=== PATIENT | male | born 1935 | race Caucasian/White ===

== ENCOUNTER 2020-05-23 14:14 | Observation (INO) | payer MEDICARE, OTHER ==
[~2020-05-23] VITALS: Ht 172.7 cm; Wt 94.0 kg
[2020-05-23 14:29] LABS: BASOPHILS % (AUTO) 0 % (0-10); EOSINOPHILS % (AUTO) 0 % (0-10); HEMATOCRIT 49 % (40-54); LYMPHOCYTES # (AUTO) 1.8 10^3/uL (1.0-4.0); LYMPHOCYTES % (AUTO) 16 % (12-44); MEAN CORPUSCULAR HEMOGLOBIN 31 pg (25-34); MEAN CORPUSCULAR HGB CONC 35 g/dL (32-36); MEAN CORPUSCULAR VOLUME 88 fL (80-99); MEAN PLATELET VOLUME 10.2 fL (9.0-12.2); MONOCYTES # (AUTO) 0.7 10^3/uL (0.0-1.0); MONOCYTES % (AUTO) 6 % (0-12); NEUTROPHILS # (AUTO) 9.2 10^3/uL (1.8-7.8); NEUTROPHILS % (AUTO) 78 % (42-75); PLATELET COUNT 198 10^3/uL (130-400); WHITE BLOOD COUNT 11.8 10^3/uL (4.3-11.0)
--- NOTE | 2020-05-23 14:30 | ED Neurological Problem ---
General Chief Complaint: Neuro-Stroke Like Symptoms Stated Complaint: CONFUSION Source: patient, EMS Exam Limitations: no limitations History of Present Illness Date Seen by Provider: May 23, 2020 Time Seen by Provider: 14:29 Initial Comments To ER with confusion. EMS noted hypertension and repeating phrases. Upon arrival to ER he states "I feel like I gotta pee". He repeats the phrase over and over. His Rosie ([phone]) states that she felt weak and ill on Friday 2 days ago. That evening, he began to feel ill as well. They both slept all day yesterday and had some muscle aches in her low back. She noticed that today at noon he urinated on himself which is unusual for him. She states that 4 days ago he forgot his phone number and address which is very unusual for him. No fevers. She states he is DO NOT RESUSCITATE status and has an advanced directive stating this. He is on warfarin for atrial fibrillation, lives part-time in [place] and part-time in [facility] where he follows with Dr. Newton from [phone]. Timing/Duration: waxing and waning Severity: moderate Associated Symptoms: confusion Allergies and Home Medications Allergies Coded Allergies: No Allergy Information Available (Unverified , 05/23/20) Patient Home Medication List Home Medication List Reviewed: Yes Review of Systems Review of Systems Constitutional: see HPI, other (unable to obtain) Physical Exam Vital Signs Vital Signs - First Documented 05/23/20 14:15 Temp 35.9 Pulse 68 Resp 22 B/P (MAP) 208/114 (145) Pulse Ox 95 O2 Delivery Room Air Capillary Refill : Height, Weight, BMI Height: '" Weight: lbs. oz. kg; BMI Method: General Appearance: WD/WN, no apparent distress, other (repeating the phrase "I feel like I've gotta pee". Bedside ultrasound showed a distended bladder so a Salvador catheter was inserted) HEENT: PERRL/EOMI, normal ENT inspection Respiratory: normal breath sounds, no respiratory distress, no accessory muscle use Cardiovascular: no murmur, irregularly irregular Gastrointestinal: normal bowel sounds, non tender, soft Neurologic/Psychiatric: alert, other (he knows he is at [facility] but he does not know the year or the month.) Crainal Nerves: normal hearing, PERRL Skin: normal color, warm/dry Stroke Onset of Symptoms Date of Onset of Symptoms: May 23, 2020 Time of Symptom Onset: 14:00 Onset of Symptoms: Yes NIH Stroke Scale Assessment Select: Initial Level of Consciousness: 0=Alert (0), Level of Consciousness- Questions: 1=Answers one question (1), LOC Commands: 1=Performs one task (1), Gaze: Normal (0), Visual Saenz: 0=No visual loss (0), Facial Movement (Facial Paresis): 0=Normal symmetrical mnt (0), Motor Function-Arms Right: 0=No drift (0), Motor Function-Arms Left: 0=No drift (0), Motor Function-Legs Right: 0=No drift (0), Motor Function-Legs Left: 0=No drift (0), Limb Ataxia: 0=Absent (0), Sensory: 0=Normal:no loss (0), Best Language: 1=Mild to moderat aphasia (1), Dysarthria: 1=Mild to moderate loss (1), Extinction & Inattention: 0=No abnormality (0), Total: 4 Stroke Thrombolytic Exclusion Oral Anticoagulants: Yes Progress/Results/Core Measures Results/Orders Lab Results Laboratory Tests Test 05/23/20 14:20 05/23/20 14:23 05/23/20 14:25 05/23/20 15:05 Range/Units White Blood Count 11.8 H 4.3-11.0 10^3/uL Red Blood Count 5.56 H 4.30-5.52 10^6/uL Hemoglobin 17.0 13.3-17.7 g/dL Hematocrit 49 40-54 % Mean Corpuscular Volume 88 80-99 fL Mean Corpuscular Hemoglobin 31 25-34 pg Mean Corpuscular Hemoglobin Concent 35 32-36 g/dL Red Cell Distribution Width 13.1 10.0-14.5 % Platelet Count 198 130-400 10^3/uL Mean Platelet Volume 10.2 9.0-12.2 fL Immature Granulocyte % (Auto) 1 % Neutrophils (%) (Auto) 78 H 42-75 % Lymphocytes (%) (Auto) 16 12-44 % Monocytes (%) (Auto) 6 0-12 % Eosinophils (%) (Auto) 0 0-10 % Basophils (%) (Auto) 0 0-10 % Neutrophils # (Auto) 9.2 H 1.8-7.8 10^3/uL Lymphocytes # (Auto) 1.8 1.0-4.0 10^3/uL Monocytes # (Auto) 0.7 0.0-1.0 10^3/uL Eosinophils # (Auto) 0.0 0.0-0.3 10^3/uL Basophils # (Auto) 0.0 0.0-0.1 10^3/uL Immature Granulocyte # (Auto) 0.1 0.0-0.1 10^3/uL Prothrombin Time 20.0 H 12.2-14.7 SEC INR Comment 1.7 H 0.8-1.4 Activated Partial Thromboplast Time 27 24-35 SEC D-Dimer < 0.27 0.00-0.49 UG/ML Sodium Level 141 135-145 MMOL/L Potassium Level 3.9 3.6-5.0 MMOL/L Chloride Level 107 98-107 MMOL/L Carbon Dioxide Level 22 21-32 MMOL/L Anion Gap 12 5-14 MMOL/L Blood Urea Nitrogen 11 7-18 MG/DL Creatinine 0.75 0.60-1.30 MG/DL Estimat Glomerular Filtration Rate > 60 BUN/Creatinine Ratio 15 Glucose Level 141 H 70-105 MG/DL Calcium Level 8.0 L 8.5-10.1 MG/DL Corrected Calcium 8.0 L 8.5-10.1 MG/DL Total Bilirubin 1.1 H 0.1-1.0 MG/DL Aspartate Amino Transf (AST/SGOT) 23 5-34 U/L Alanine Aminotransferase (ALT/SGPT) 22 0-55 U/L Alkaline Phosphatase 65 40-136 U/L Troponin I < 0.028 <0.028 NG/ML Total Protein 6.5 6.4-8.2 GM/DL Albumin 4.0 3.2-4.5 GM/DL Glucometer 154 H 70-110 MG/DL Urine Color YELLOW Urine Clarity CLEAR Urine pH 7.5 5-9 Urine Specific [place] 1.020 1.016-1.022 Urine Protein 1+ H NEGATIVE Urine Glucose (UA) TRACE H NEGATIVE Urine Ketones NEGATIVE NEGATIVE Urine Nitrite NEGATIVE NEGATIVE Urine Bilirubin NEGATIVE NEGATIVE Urine Urobilinogen 0.2 < = 1.0 MG/DL Urine Leukocyte Esterase NEGATIVE NEGATIVE Urine RBC (Auto) TRACE-L NEGATIVE Urine RBC 2-5 H /HPF Urine WBC NONE /HPF Urine Squamous Epithelial Cells NONE /HPF Urine Crystals NONE /LPF Urine Bacteria NEGATIVE /HPF Urine Casts NONE /LPF Urine Mucus NEGATIVE /LPF Urine Culture Indicated NO Coronavirus 2018 (JAYDE) Negative Negative My Orders Orders - DEEPTHI BROWN [employer]PERATOR Ct Angio Head/Neck (05/23/20 14:42) Covid 19 Inhouse Test (05/23/20 14:44) Iohexol Injection (Omnipaque 350 Mg/Ml 1 (05/23/20 15:00) Received Contrast (Hold Metformin- Contr (05/23/20 15:00) Ns (Ivpb) (Sodium Chloride 0.9% Ivpb Bag (05/23/20 15:00) Ondansetron Injection (Zofran Injectio (05/23/20 15:00) Coronavirus Sars-Cov-2 So 2019 (05/23/20 15:45) Medications Given in ED Current Medications Medications Dose Ordered Sig/Randi Route Start Time Stop Time Status Last Admin Dose Admin Iohexol 75 ml ONCE ONCE IV 05/23/20 15:00 05/23/20 15:42 DC 05/23/20 14:57 75 ML Ondansetron HCl 4 mg ONCE ONCE IVP 05/23/20 15:00 05/23/20 15:01 DC 05/23/20 15:06 4 MG Sodium Chloride 100 ml ONCE ONCE IV 05/23/20 15:00 05/23/20 15:42 DC 05/23/20 14:58 80 ML Vital Signs/I&O 05/23/20 14:15 Temp 35.9 Pulse 68 Resp 22 B/P (MAP) 208/114 (145) Pulse Ox 95 O2 Delivery Room Air Diagnostic Imaging Diagonstic Imaging: Xray Plain Films/CT/US/NM/MRI: chest Comments NAME: ARLEY GRAHAM MED REC#: [id number] PT STATUS: REG ER : 1935 PHYSICIAN: BONNY DIAZ MD ADMIT DATE: 05/23/20/ER Draft Date of Exam:05/23/20 CHEST 1 VIEW, AP/PA ONLY INDICATION: Cerebrovascular accident. TIME OF EXAM: 03:11 p.m. COMPARISON: No prior studies are available for comparison. FINDINGS: Heart size is normal. Cardiac defibrillator is in place. The lungs are clear. No infiltrates are seen. There is no effusion or pneumothorax. IMPRESSION: No acute cardiopulmonary process is detected. Dictated on workstation # [id number] Dict: 05/23/20 1512 Trans: 05/23/20 1514 [facility] [id number] Interpreted by: KIESHA MAIER MD Electronically signed by: Departure Communication (Admissions) Time/Spoke to Admitting Phy: 16:[address] La, we'll admit observation, neuro checks. As of yet I don't find cause for his altered mental status. NAME: ARLEY GRAHAM MED REC#: [id number] PT STATUS: REG ER : 1935 PHYSICIAN: BONNY DIAZ MD ADMIT DATE: 05/23/20/ER Draft Date of Exam:05/23/20 CT HEAD WO-R/O STROKE PROCEDURE: CT head wo r/o stroke. TECHNIQUE: Multiple contiguous axial images were obtained through the brain without the use of intravenous contrast. Auto Exposure Controls were utilized during the CT exam to meet ALARA standards for radiation dose reduction. All CT scans use one or more of the following dose optimizing techniques: automated exposure control, MA and/or KvP adjustment based on patient size and exam type or iterative reconstruction. INDICATION: Confusion. No prior studies are available for comparison. Ventricles and sulci are within normal limits. No sulcal effacement or midline shift is identified. No acute intra-axial or extra-axial hemorrhage is detected. Cisterns are patent. Visualized paranasal sinuses are clear. IMPRESSION: No acute intracranial process is detected. Dictated on workstation # [id number] Dict: 05/23/20 1445 Trans: 05/23/20 1451 [facility] [id number] Interpreted by: KIESHA MAIER MD Electronically signed by: Impression Primary Impression: AMS (altered mental status) Qualified Codes: R41.0 - Disorientation, unspecified Disposition: ADMITTED INPATIENT Condition: Stable Admissions Decision to Admit Reason: Admit from ER (General) Decision to Admit/Date: May 23, 2020 Time/Decision to Admit Time: 16:10 DEEPTHI BROWN APRN May 23, 2020 14:30
[2020-05-23 14:38] LABS: CHLORIDE 107 MMOL/L (98-107); POTASSIUM 3.9 MMOL/L (3.6-5.0); SODIUM 141 MMOL/L (135-145)
[2020-05-23 14:40] LABS: GLUCOSE 141 MG/DL (70-105)
[2020-05-23 14:40] LABS: BILIRUBIN,URINE NEGATIVE (NEGATIVE); CLARITY,URINE CLEAR; COLOR,URINE YELLOW; GLUCOSE, URINE (UA) TRACE (NEGATIVE); KETONES,URINE NEGATIVE (NEGATIVE); LEUKOCYTE ESTERASE ,URINE NEGATIVE (NEGATIVE); NITRITE,URINE NEGATIVE (NEGATIVE); PH,URINE 7.5 (5-9); PROTEIN,URINE 1+ (NEGATIVE)
[2020-05-23 14:41] LABS: TOTAL PROTEIN 6.5 GM/DL (6.4-8.2)
[2020-05-23 14:42] LABS: BILIRUBIN,TOTAL 1.1 MG/DL (0.1-1.0); CARBON DIOXIDE 22 MMOL/L (21-32)
[2020-05-23 14:44] LABS: ALKALINE PHOSPHATASE 65 U/L (40-136); CREATININE SERUM 0.75 MG/DL (0.60-1.30); GFR ESTIMATED > 60
[2020-05-23 14:45] LABS: BUN/CREATININE RATIO 15
[2020-05-23 14:47] LABS: ALANINE AMINOTRANSFERASE 22 U/L (0-55); FIBRIN DEGRADATION PRODUCTS < 0.27 UG/ML (0.00-0.49); INR 1.7 (0.8-1.4); PARTIAL THROMBOPLASTIN TIME 27 SEC (24-35)
[2020-05-23 14:51] LABS: BACTERIA,URINE NEGATIVE /HPF
--- NOTE | 2020-05-23 14:51 | Diagnostic Imaging Report ---
PROCEDURE: CT head wo r/o stroke. TECHNIQUE: Multiple contiguous axial images were obtained through the brain without the use of intravenous contrast. Auto Exposure Controls were utilized during the CT exam to meet ALARA standards for radiation dose reduction. All CT scans use one or more of the following dose optimizing techniques: automated exposure control, MA and/or KvP adjustment based on patient size and exam type or iterative reconstruction. INDICATION: Confusion. No prior studies are available for comparison. Ventricles and sulci are within normal limits. No sulcal effacement or midline shift is identified. No acute intra-axial or extra-axial hemorrhage is detected. Cisterns are patent. Visualized paranasal sinuses are clear. IMPRESSION: No acute intracranial process is detected. Dictated by: Dictated on workstation # [id number]
[2020-05-23] MEDS ORDERED: ONDANSETRON 4 MG/2 ML (SDV) Z0FRAN IVP ONE (15:00)
[2020-05-23] MEDS ORDERED: IOHEXOL 350 MG/ML 100 ML (OMNIPAQUE 350) VIAL IV ONE (15:00)
[2020-05-23] MEDS ORDERED: NS 100 ML (IVPB) BAG IV ONE (15:00)
[2020-05-23] MEDS ORDERED: HOLD METFORMIN - RECEIVED CONTRAST 20 ML VIAL IV SCH (15:00)
--- NOTE | 2020-05-23 15:14 | Diagnostic Imaging Report ---
INDICATION: Cerebrovascular accident. TIME OF EXAM: 03:11 p.m. COMPARISON: No prior studies are available for comparison. FINDINGS: Heart size is normal. Cardiac defibrillator is in place. The lungs are clear. No infiltrates are seen. There is no effusion or pneumothorax. IMPRESSION: No acute cardiopulmonary process is detected. Dictated by: Dictated on workstation # [id number]
--- NOTE | 2020-05-23 15:30 | NUR ---
SPOKE WITH PRASHANT AND GAVE HER AN UPDATE AND GOT MED HX.
[2020-05-23] MEDS ORDERED: ENOXAPARIN 100 MG/1 ML (LOVENOX) SYR SC ONE (16:15)
--- NOTE | 2020-05-23 16:45 | NUR ---
PT SLEEPING AT DISCHARGE, DID NOT WAKE UP, NO DISCHARGE NIH STROKE SCALE DONE.
--- NOTE | 2020-05-23 16:53 | Diagnostic Imaging Report ---
PROCEDURE: CT angiography of the head and CT angiography of the neck with and without contrast. TECHNIQUE: Contiguous noncontrast images were obtained from the skull base through the vertex. After intravenous contrast administration, helical CT angiography of the neck was performed. Source data was reformatted into 3D MIP projections. Delayed post contrast acquisition was also obtained. Auto Exposure Controls were utilized during the CT exam to meet ALARA standards for radiation dose reduction. INDICATION: Neuro deficit and confusion. FINDINGS: Delayed post contrast images are unremarkable for abnormal enhancement. CT angiographic portion of the exam demonstrates a three-vessel branching pattern to the aortic arch. Both the right and left common carotid arteries are widely patent. There is some calcified plaque at the carotid bifurcations bilaterally but no high-grade stenosis is detected. The internal carotid arteries are widely patent. There is calcified plaque at the carotid siphons bilaterally. The M1 and M2 branches of the middle cerebral arteries are widely patent bilaterally. No filling defect or evidence of large branch occlusion is seen. Right and left anterior cerebral arteries are widely patent. The basilar artery is patent. Right and left posterior cerebral arteries are patent. The vertebral arteries appear to be codominant. No stenosis or occlusion is detected. IMPRESSION: Unremarkable CT angiogram of the head and neck. No thromboembolism or evidence of large branch occlusion is identified. Dictated by: Dictated on workstation # [id number]
[2020-05-23] MEDS ORDERED: LACTATED RINGERS 1,000 ML IV ONE (17:13)
--- NOTE | 2020-05-23 17:15 | NUR ---
ARLEY GRAHAM admitted to room 408-1, with an admitting diagnosis of ALTERED MENTAL STATUS, on 05/23/20 from ED via BED, accompanied by STAFF. ARLEY GRAHAM introduced to surroundings, call light, bed controls, phone, TV, temperature control, lights, meal times, smoking policy, visitor policy, side rail policy, bathrooms and showers. Patient Rights given to patient in the handbook. ARLEY GRAHAM verbalizes understanding that [facility] is not responsible for the loss or damage to any personal effects or valuables that are kept in the patients posession during their hospitalization. The following Patient Care Plans were discussed with the PATIENT: Discharge Planning,FALL AND ALTERED MENTAL STATUS. ARLEY GRAHAM verbalizes understanding of Interdisciplinary Patient Education. Patient and/or family were informed about the Rapid Response Team and its purpose.
[2020-05-23 17:16] VITALS: BP 164/91
[2020-05-23] MEDS ORDERED: CARV6.25 PO (17:39)
[2020-05-23] MEDS ORDERED: WARF3TAB56 PO (17:45)
[2020-05-23] MEDS ORDERED: ATOR40TA70 PO (17:45)
[2020-05-23] MEDS ORDERED: LOSA25TA41 PO (17:45)
[2020-05-23] MEDS ORDERED: ASPI-1238 PO (17:45)
[2020-05-23] MEDS ORDERED: ISOS30TA3 PO (17:45)
[2020-05-23] MEDS: LACTATED RINGERS 1,000 ML IV SCH (17:46)
--- NOTE | 2020-05-23 18:10 | NUR ---
THIS RN PHONED PRASHANT AND DAUGHTER AMARA TO UPDATE ON PATIENT'S CONDITION AND FINISHED ADMISSION QUESTIONS WITH THEM. ADMISSION QUESTIONS ANSWERED BY AND DAUGHTER DUE TO PATIENT'S CONFUSION AT THIS TIME. THIS RN TO MONITOR PATIENT AND GAVE FAMILY DIRECT NUMBER TO PATIENTS ROOM AND FLOOR. FAMILY HAD NO MORE QUESTIONS FOR THIS RN AND ASKED TO LET PATIENT KNOW THEY LOVE HIM AND ARE PRAYING FOR HIM.
[2020-05-23 19:12] VITALS: BP 138/65
[2020-05-23] MEDS: CARVEDILOL 6.25 MG (COREG) TAB PO SCH (21:39)
[2020-05-24] VITALS: BP 151/77
--- NOTE | 2020-05-24 00:05 | NUR ---
Put telesitter in patients room and added intervention to patients chart.
--- NOTE | 2020-05-24 03:14 | NUR ---
Spoke with the patients son and had the son speak with the patient. The patients son Luis stated his father is clearly confused. Will continue to keep family updated
[2020-05-24 04:07] VITALS: BP 117/64
[2020-05-24] MEDS: LACTATED RINGERS 1,000 ML IV SCH ×3 (04:52→17:42)
[2020-05-24 05:18] LABS: BASOPHILS % (AUTO) 0 % (0-10); EOSINOPHILS % (AUTO) 0 % (0-10); HEMATOCRIT 44 % (40-54); HEMOGLOBIN 15.2 g/dL (13.3-17.7); LYMPHOCYTES # (AUTO) 2.7 10^3/uL (1.0-4.0); LYMPHOCYTES % (AUTO) 21 % (12-44); MEAN CORPUSCULAR HEMOGLOBIN 30 pg (25-34); MEAN CORPUSCULAR HGB CONC 35 g/dL (32-36); MEAN CORPUSCULAR VOLUME 88 fL (80-99); MEAN PLATELET VOLUME 10.3 fL (9.0-12.2); MONOCYTES # (AUTO) 1.5 10^3/uL (0.0-1.0); MONOCYTES % (AUTO) 12 % (0-12); NEUTROPHILS # (AUTO) 8.6 10^3/uL (1.8-7.8); NEUTROPHILS % (AUTO) 67 % (42-75); PLATELET COUNT 180 10^3/uL (130-400); WHITE BLOOD COUNT 12.9 10^3/uL (4.3-11.0)
[2020-05-24 05:24] LABS: CHLORIDE 104 MMOL/L (98-107); POTASSIUM 3.8 MMOL/L (3.6-5.0); SODIUM 140 MMOL/L (135-145)
[2020-05-24 05:25] LABS: ALBUMIN 3.8 GM/DL (3.2-4.5)
[2020-05-24 05:26] LABS: CALCIUM 8.9 MG/DL (8.5-10.1)
[2020-05-24 05:27] LABS: GLUCOSE 116 MG/DL (70-105); TRIGLYCERIDES 207 MG/DL (<150); VLDL CHOLESTEROL 41 MG/DL (5-40)
[2020-05-24 05:28] LABS: CARBON DIOXIDE 24 MMOL/L (21-32)
[2020-05-24 05:29] LABS: BILIRUBIN,TOTAL 1.3 MG/DL (0.1-1.0)
[2020-05-24 05:31] LABS: ALKALINE PHOSPHATASE 63 U/L (40-136); CREATININE SERUM 0.83 MG/DL (0.60-1.30); GFR ESTIMATED > 60
[2020-05-24 05:32] LABS: BUN/CREATININE RATIO 16; CHOLESTEROL 146 MG/DL (< 200)
[2020-05-24 05:33] LABS: HDL CHOLESTEROL 34 MG/DL (40-60)
[2020-05-24 05:34] LABS: ALANINE AMINOTRANSFERASE 21 U/L (0-55)
[2020-05-24 05:47] LABS: INR 1.7 (0.8-1.4); PROTHROMBIN TIME PATIENT 19.9 SEC (12.2-14.7)
[2020-05-24 08:00] VITALS: BP 145/71
--- NOTE | 2020-05-24 08:56 | Diagnostic Imaging Report ---
CLINICAL INDICATION: Patient with elevated bilirubin. EXAM: Right upper quadrant ultrasound. COMPARISON: None. FINDINGS: Patient body habitus and overlying bowel gas obscure portions of the abdomen. The common bile duct, pancreas, and portions of the abdominal aorta and IVC are obscured. The pancreas is unable to be evaluated. The visualized portions of the abdominal aorta and IVC show no gross abnormality. There is diffuse hyperechogenicity seen throughout the liver. The liver surface is smooth as visualized. The liver measures 16.5 cm. There is normal hepatopetal flow. There is no gross intrahepatic ductal dilation as visualized but the hypoechogenicity of the liver limits evaluation. The gallbladder is surgically absent. The kidneys are unremarkable as visualized with no hydronephrosis, mass, or stone. The right kidney measures 10.3 cm in craniocaudal dimension. There is no abdominal ascites. IMPRESSION: 1. Limited exam due to patient body habitus and overlying bowel gas. The pancreas, common bile duct, and portions of the abdominal aorta and IVC are unable to be evaluated. 2. The gallbladder is surgically absent. 3. There is diffuse hyperechogenicity seen throughout the liver which may be related to diffuse fatty infiltration and/or chronic hepatocellular disease. 4. The remainder of this exam shows no other significant abnormality. Dictated by: Dictated on workstation # [id number]
[2020-05-24] MEDS ORDERED: warFARin 3 MG (COUMADIN) TAB PO SCH (09:00)
[2020-05-24] MEDS: ASPIRIN E.C. 81 MG (ECOTRIN) TAB PO SCH (09:18)
[2020-05-24] MEDS: CARVEDILOL 6.25 MG (COREG) TAB PO SCH ×2 (09:19→20:27)
[2020-05-24] MEDS: LOSARTAN 25 MG (COZAAR) TAB PO SCH (09:19)
[2020-05-24] MEDS: ISOSORBIDE MONONITRATE 30 MG (IMDUR) TAB PO SCH (09:19)
--- NOTE | 2020-05-24 11:41 | History & Physical ---
HPI History of Present Illness: 84 yo male came to ER after feeling faint at home and having confusion. He feels better today and states he knows he was confused and feels much more clear now. His was concerned about heart, he has a defibrillator. He reports he was having trouble passing urine which he has never had before. He did have urinary frequency for the last week. He also admits some constipation, having to force to have a BM for 2-3 weeks which is unusual for him. He denies blood in stool. He also notes he has right back pain around rib area for about 6 months that is much worse in the last week. He denies prior episodes of confusion. He admits runny nose for a couple of weeks. He admits "once in a great while" cough, Denies fever, nasal congestion, sore throat, chest pain, shortness of breath, abdominal pain, nausea, vomiting, rashes. Source: patient Exam Limitations: no limitations Date seen by provider: May 24, 2020 Time Seen by Provider: 11:39 Attending Physician Ros La MD PCP Consult Date of Admission May 23, 2020 at 16:30 Home Medications Home Medications Reviewed patient Home Medication Reconciliation performed by pharmacy medication reconciliations rv repair technician and/or nursing. Patients Allergies have been reviewed. Allergies Coded Allergies: clopidogrel (Verified Allergy, Severe, swelling, 05/23/20) codeine (Verified Allergy, Severe, rash, 05/23/20) lisinopril (Verified Allergy, Severe, rash, 05/23/20) tetracycline (Verified Allergy, Severe, 05/23/20) [facility]Htz[facility]g Hx Patient Social History Alcohol Use: Denies Use Recreational Drug Use: No Smoking Status: Unknown if Ever Smoked Recent Foreign Travel: No Contact w/other who traveled: No Recent Hopitalizations: No Recent Infectious Disease Expo: No Immunizations Up To Date Date of Pneumonia Vaccine: May 23, 2017 Date of Influenza Vaccine: Apr 26, 2020 Past Medical History PMHx: Coronary artery disease (NM at age 67) Atrial fibrillation Congestive heart failure HTN HLD SurgHx: Cholecystectomy Defibrillator placement Family Medical History Family History: Cardiovascular disease 19 MOTHER Dementia 19 MOTHER FH: breast cancer G8 SISTER (2 sisters breast cancer) Sepsis 19 FATHER (father passed when patient was young) Sepsis 19 FATHER (father passed when patient was young) Review of Systems ([facility]) Constitutional: No fever EENTM: see HPI Respiratory: see HPI Cardiovascular: see HPI Gastrointestinal: see HPI Genitourinary: see HPI Musculoskeletal: see HPI Skin: see HPI Psychiatric/Neurological: See HPI Reviewed Test Results Reviewed Test Results Lab Laboratory Tests Test 05/23/20 14:20 05/23/20 14:23 05/23/20 14:25 05/23/20 15:05 Range/Units White Blood Count 11.8 H 4.3-11.0 10^3/uL Red Blood Count 5.56 H 4.30-5.52 10^6/uL Hemoglobin 17.0 13.3-17.7 g/dL Hematocrit 49 40-54 % Mean Corpuscular Volume 88 80-99 fL Mean Corpuscular Hemoglobin 31 25-34 pg Mean Corpuscular Hemoglobin Concent 35 32-36 g/dL Red Cell Distribution Width 13.1 10.0-14.5 % Platelet Count 198 130-400 10^3/uL Mean Platelet Volume 10.2 9.0-12.2 fL Immature Granulocyte % (Auto) 1 % Neutrophils (%) (Auto) 78 H 42-75 % Lymphocytes (%) (Auto) 16 12-44 % Monocytes (%) (Auto) 6 0-12 % Eosinophils (%) (Auto) 0 0-10 % Basophils (%) (Auto) 0 0-10 % Neutrophils # (Auto) 9.2 H 1.8-7.8 10^3/uL Lymphocytes # (Auto) 1.8 1.0-4.0 10^3/uL Monocytes # (Auto) 0.7 0.0-1.0 10^3/uL Eosinophils # (Auto) 0.0 0.0-0.3 10^3/uL Basophils # (Auto) 0.0 0.0-0.1 10^3/uL Immature Granulocyte # (Auto) 0.1 0.0-0.1 10^3/uL Prothrombin Time 20.0 H 12.2-14.7 SEC INR Comment 1.7 H 0.8-1.4 Activated Partial Thromboplast Time 27 24-35 SEC D-Dimer < 0.27 0.00-0.49 UG/ML Sodium Level 141 135-145 MMOL/L Potassium Level 3.9 3.6-5.0 MMOL/L Chloride Level 107 98-107 MMOL/L Carbon Dioxide Level 22 21-32 MMOL/L Anion Gap 12 5-14 MMOL/L Blood Urea Nitrogen 11 7-18 MG/DL Creatinine 0.75 0.60-1.30 MG/DL Estimat Glomerular Filtration Rate > 60 BUN/Creatinine Ratio 15 Glucose Level 141 H 70-105 MG/DL Calcium Level 8.0 L 8.5-10.1 MG/DL Corrected Calcium 8.0 L 8.5-10.1 MG/DL Total Bilirubin 1.1 H 0.1-1.0 MG/DL Aspartate Amino Transf (AST/SGOT) 23 5-34 U/L Alanine Aminotransferase (ALT/SGPT) 22 0-55 U/L Alkaline Phosphatase 65 40-136 U/L Troponin I < 0.028 <0.028 NG/ML Total Protein 6.5 6.4-8.2 GM/DL Albumin 4.0 3.2-4.5 GM/DL Glucometer 154 H 70-110 MG/DL Urine Color YELLOW Urine Clarity CLEAR Urine pH 7.5 5-9 Urine Specific [place] 1.020 1.016-1.022 Urine Protein 1+ H NEGATIVE Urine Glucose (UA) TRACE H NEGATIVE Urine Ketones NEGATIVE NEGATIVE Urine Nitrite NEGATIVE NEGATIVE Urine Bilirubin NEGATIVE NEGATIVE Urine Urobilinogen 0.2 < = 1.0 MG/DL Urine Leukocyte Esterase NEGATIVE NEGATIVE Urine RBC (Auto) TRACE-L NEGATIVE Urine RBC 2-5 H /HPF Urine WBC NONE /HPF Urine Squamous Epithelial Cells NONE /HPF Urine Crystals NONE /LPF Urine Bacteria NEGATIVE /HPF Urine Casts NONE /LPF Urine Mucus NEGATIVE /LPF Urine Culture Indicated NO Coronavirus 2019 (JAYDE) Negative Negative Test 05/23/20 15:45 05/24/20 04:35 Range/Units White Blood Count 12.9 H 4.3-11.0 10^3/uL Red Blood Count 5.02 4.30-5.52 10^6/uL Hemoglobin 15.2 13.3-17.7 g/dL Hematocrit 44 40-54 % Mean Corpuscular Volume 88 80-99 fL Mean Corpuscular Hemoglobin 30 25-34 pg Mean Corpuscular Hemoglobin Concent 35 32-36 g/dL Red Cell Distribution Width 13.0 10.0-14.5 % Platelet Count 180 130-400 10^3/uL Mean Platelet Volume 10.3 9.0-12.2 fL Immature Granulocyte % (Auto) 0 % Neutrophils (%) (Auto) 67 42-75 % Lymphocytes (%) (Auto) 21 12-44 % Monocytes (%) (Auto) 12 0-12 % Eosinophils (%) (Auto) 0 0-10 % Basophils (%) (Auto) 0 0-10 % Neutrophils # (Auto) 8.6 H 1.8-7.8 10^3/uL Lymphocytes # (Auto) 2.7 1.0-4.0 10^3/uL Monocytes # (Auto) 1.5 H 0.0-1.0 10^3/uL Eosinophils # (Auto) 0.0 0.0-0.3 10^3/uL Basophils # (Auto) 0.0 0.0-0.1 10^3/uL Immature Granulocyte # (Auto) 0.1 0.0-0.1 10^3/uL Prothrombin Time 19.9 H 12.2-14.7 SEC INR Comment 1.7 H 0.8-1.4 Sodium Level 140 135-145 MMOL/L Potassium Level 3.8 3.6-5.0 MMOL/L Chloride Level 104 98-107 MMOL/L Carbon Dioxide Level 24 21-32 MMOL/L Anion Gap 12 5-14 MMOL/L Blood Urea Nitrogen 13 7-18 MG/DL Creatinine 0.83 0.60-1.30 MG/DL Estimat Glomerular Filtration Rate > 60 BUN/Creatinine Ratio 16 Glucose Level 116 H 70-105 MG/DL Calcium Level 8.9 8.5-10.1 MG/DL Corrected Calcium 9.1 8.5-10.1 MG/DL Total Bilirubin 1.3 H 0.1-1.0 MG/DL Aspartate Amino Transf (AST/SGOT) 21 5-34 U/L Alanine Aminotransferase (ALT/SGPT) 21 0-55 U/L Alkaline Phosphatase 63 40-136 U/L Total Protein 6.0 L 6.4-8.2 GM/DL Albumin 3.8 3.2-4.5 GM/DL Triglycerides Level 207 H <150 MG/DL Cholesterol Level 146 < 200 MG/DL LDL Cholesterol Direct 78 1-129 MG/DL VLDL Cholesterol 41 H 5-40 MG/DL HDL Cholesterol 34 L 40-60 MG/DL Radiology 05/23/20 CT head unremarkable 05/23/20 CTA head/neck: IMPRESSION: Unremarkable CT angiogram of the head and neck. No thromboembolism or evidence of large branch occlusion is identified. Physical Exam-([facility]) Physical Exam Vital Signs VS - Last 72 Hours, by Label 05/23/20 05/23/20 05/23/20 05/23/20 14:15 16:45 17:16 18:00 Temp 35.9 35.9 35.0 Pulse 68 63 97 Resp 22 22 18 B/P (MAP) 208/114 (145) 130/70 (145) 164/91 Pulse Ox 95 94 98 O2 Delivery Room Air Room Air Nasal Cannula Nasal Cannula O2 Flow Rate 3.00 3.00 05/23/20 05/23/20 05/24/20 05/24/20 19:12 20:00 00:00 04:07 Temp 36.5 36.8 36.6 Pulse 94 76 68 Resp 18 18 18 B/P (MAP) 138/65 (89) 151/77 (101) 117/64 (81) Pulse Ox 98 98 97 97 O2 Delivery Nasal Cannula Nasal Cannula Nasal Cannula Nasal Cannula O2 Flow Rate 3.00 3.00 3.00 3.00 05/24/20 05/24/20 05/24/20 05/24/20 08:00 08:00 12:00 16:00 Temp 36.8 36.3 Pulse 63 57 68 Resp 20 22 18 B/P (MAP) 145/71 (95) 84/52 (63) 109/56 (73) Pulse Ox 96 96 95 96 O2 Delivery Nasal Cannula Room Air Room Air Nasal Cannula O2 Flow Rate 3.00 3.00 05/24/20 19:25 Temp 35.8 Pulse 74 Resp 18 B/P (MAP) 97/55 (69) Pulse Ox 96 O2 Delivery Nasal Cannula O2 Flow Rate 3.00 Capillary Refill : Less Than 3 Seconds General Appearance: WD/WN, no apparent distress HEENT: PERRL/EOMI, pharynx normal Respiratory: lungs clear, normal breath sounds Cardiovascular: regular rate, rhythm, no murmur Gastrointestinal: normal bowel sounds, distended (lower abdomen firm and mildly ttp) Extremities: no pedal edema Neurologic/Psychiatric: call taker II-XII nml as tested, alert, normal mood/affect; No abnormal cerebellar tests, No facial droop, No motor weakness; other (alert and oriented to self and location, reports year as 2009 and is fairly convinced he came to the hospital Sat although he arrived yesterday (Friday)) Skin: normal color, warm/dry Assessment/Plan Assessment/Plan Admission Status: Observation (1) AMS (altered mental status) Status: Acute Assessment & Plan: No evidence of infection except mildly elevated WBC- urine negative, CXR normal. Possiby due to urinary retention. CT and CTA unremarkable, consider MRI. Is significantly better today so will wait on MRI for now. With his permission, talked to and daughter who reported when they talked to him today he is not back to baseline. Qualifiers: Qualified Codes: R41.0 - Disorientation, unspecified (2) Urinary retention Status: Acute Assessment & Plan: Salvador cath in place now, will need to d/c and monitor bladde r, if continues to have difficulty, will add medication. UA not consistent with infection. (3) Elevated bilirubin Status: Acute Assessment & Plan: Ultrasound liver this am (4) Right-sided back pain Status: Acute Assessment & Plan: Flank to mid back pain, concern given his elevated bilirubin for pancreatic lesion, will follow up on US. Qualifiers: Qualified Codes: M54.6 - Pain in thoracic spine; G89.29 - Other chronic pain (5) Hypertension Status: Chronic Assessment & Plan: Markedly hypertensive on arrival, currently normal to low BP, monitor closely. Qualifiers: Qualified Codes: I10 - Essential (primary) hypertension (6) Atrial fibrillation Status: Chronic Assessment & Plan: Continue home coumadin (7) CHF (congestive heart failure) Status: Chronic Assessment & Plan: Unknown type, follows with Cardiology in [place] where he lives part of the year. Resume home medications as BP tolerates. (8) Hyperlipidemia Status: Chronic (9) DVT prophylaxis Status: Acute Assessment & Plan: On warfarin Clinical Quality Measures DVT/VTE Risk/Contraindication: Risk Factor Score Per Nursin RFS Level Per Nursing on Admit: 4+=Very High Stroke: Date of last known well: May 23, 2020 Time of last known well: 14:00 ROS LA MD May 24, 2020 11:41
[2020-05-24 12:00] VITALS: BP 84/52
[2020-05-24] MEDS ORDERED: ACET-2267 PO (15:56)
[2020-05-24] MEDS ORDERED: CHOL100048 PO (15:56)
[2020-05-24] MEDS ORDERED: VITA1TAB17 PO (15:56)
--- NOTE | 2020-05-24 15:57 | NUR ---
SPOKE WITH THE PTS ([facility]) AND CALLED [facility] ORDER TO COMPLETE THE MED REC 03-24-2020 COREG 6.25MG #200/100DS 03-24-2020 ATORVASTATIN 40MG #100/100DS 03-24-2020 LOSARTAN 25MG #100/100DS 03-27-2020 WARFARIN 3MG #100/100DS 03-29-2020 ISOSORBIDE MONO ER 30MG #100/100DS OTC MEDS: ASPIRIN 81 VIT D VIT B COMPLEX TYLENOL
[2020-05-24 16:00] VITALS: BP 109/56
[2020-05-24] MEDS: warFARin 3 MG (COUMADIN) TAB PO SCH (17:33)
[2020-05-24 19:25] VITALS: BP 97/55
[2020-05-25] VITALS: BP 111/56
[2020-05-25 03:56] VITALS: BP 109/58
[2020-05-25] MEDS: LACTATED RINGERS 1,000 ML IV SCH (05:42)
--- NOTE | 2020-05-25 06:05 | NUR ---
DR. MOSCOSO NOTIFIED OF NEGATIVE COVID TEST RESULTS. ISOLATION DISCONTINUED AT THIS TIME.
[2020-05-25 06:20] LABS: HEMOGLOBIN 14.1 g/dL (13.3-17.7); MEAN PLATELET VOLUME 10.2 fL (9.0-12.2); WHITE BLOOD COUNT 9.5 10^3/uL (4.3-11.0)
[2020-05-25 06:31] LABS: INR 1.7 (0.8-1.4); PROTHROMBIN TIME PATIENT 19.9 SEC (12.2-14.7)
[2020-05-25 06:42] LABS: ALANINE AMINOTRANSFERASE 18 U/L (0-55); ALBUMIN 3.4 GM/DL (3.2-4.5); ALKALINE PHOSPHATASE 61 U/L (40-136); BILIRUBIN,DIRECT 0.4 MG/DL (0.0-0.3); BILIRUBIN,INDIRECT 0.8 MG/DL; BILIRUBIN,TOTAL 1.2 MG/DL (0.1-1.0); BUN/CREATININE RATIO 20; CALCIUM 8.4 MG/DL (8.5-10.1); CARBON DIOXIDE 26 MMOL/L (21-32); CHLORIDE 101 MMOL/L (98-107); GFR ESTIMATED > 60; GLUCOSE 111 MG/DL (70-105); POTASSIUM 4.1 MMOL/L (3.6-5.0); SODIUM 135 MMOL/L (135-145); TOTAL PROTEIN 5.5 GM/DL (6.4-8.2)
[2020-05-25 08:00] VITALS: BP 131/77
--- NOTE | 2020-05-25 08:29 | Progress Note ---
SUSHMAJohnJOCELIN JUÁREZ, 05/25/20 0829: Subjective Subjective/Events-last exam Patient seen and examined on med/surg floor this morning. Is off of COVID precautions. Patient states he is feeling much better today. He was alert and oriented x3 during interview. States he was unable to urinate and that is what brought him to the ER. Denies any chest pain, shortness of breath, nausea, vomiting, or abdominal pain. Currently has cates. Requesting food. Objective Exam Last Set of Vital Signs Vital Signs Date Time Temp Pulse Resp B/P (MAP) Pulse Ox O2 Delivery O2 Flow Rate FiO2 05/25/20 03:56 36.2 68 20 109/58 (75) 95 Nasal Cannula 3.00 Capillary Refill : Less Than 3 Seconds I&O Intake and Output 05/25/20 00:00 Intake Total 1925 ml Output Total 900 ml Balance 1025 ml Intake Oral 925 ml IV Total 1000 ml Output Urine Total 900 ml General: Alert, Oriented X3 HEENT: PERRLA, EOMI Neck: Supple, No JVD Lungs: Clear to Auscultation, Normal Air Movement Heart: Regular Rate, No Murmurs Abdomen: Normal Bowel Sounds, Soft, No Tenderness Extremities: No Cyanosis, No Edema Skin: No Rashes Neuro: Normal Speech, Normal Tone Psych/Mental Status: Mental Status NL, Mood NL Results/Procedures Lab Laboratory Tests 05/25/20 05:44: Prothrombin Time 19.9H, INR Comment 1.7H 05/25/20 05:50: White Blood Count 9.5, Red Blood Count 4.61, Hemoglobin 14.1, Hematocrit 41, Mean Corpuscular Volume 90, Mean Corpuscular Hemoglobin 31, Mean Corpuscular Hemoglobin Concent 34, Red Cell Distribution Width 13.1, Platelet Count 155, Mean Platelet Volume 10.2, Sodium Level 135, Potassium Level 4.1, Chloride Level 101, Carbon Dioxide Level 26, Anion Gap 8, Blood Urea Nitrogen 18, Creatinine 0.90, Estimat Glomerular Filtration Rate > 60, BUN/Creatinine Ratio 20, Glucose Level 111H, Calcium Level 8.4L, Total Bilirubin 1.2H, Direct Bilirubin 0.4H, Indirect Bilirubin 0.8, Aspartate Amino Transf (AST/SGOT) 15, Alanine Aminotransferase (ALT/SGPT) 18, Alkaline Phosphatase 61, Lactate Dehydrogenase 247H, Total Protein 5.5L, Albumin 3.4 Radiology 05/23/20 CT head unremarkable 05/23/20 CTA head/neck: IMPRESSION: Unremarkable CT angiogram of the head and neck. No thromboembolism or evidence of large branch occlusion is identified. Assessment/Plan Assessment/Plan Assessment & Plan 1. AMS (altered mental status) * Pt to ED for disorientation * CT and CTA unremarkable for acute pathology * Likely due to urinary retention * Cates placed * Patient feels he is more oriented and is feeling much better 2. Urinary retention * Patient still has cates placed * D/c today * Likely obstructive process as patient is making urine appropriately * Could add tamsulosin 3. Elevated bilirubin * Liver u/s revealed fatty infiltrate and/or chronic hepatocellular disease * Pancreas not well observed due to bowel gas 4. Right-sided back pain * Liver u/s revealed fatty infiltrate and/or chronic hepatocellular disease * Pancreas not well observed due to bowel gas * On questioning 05/25, pt states it feels like a muscle spasm and happens when he twists or moves incorrectly * Has been ongoing for "months" 5. Hypertension * Home medications restarted 6. Atrial fibrillation * Follows with cardiology in [place] * On warfarin 7. CHF * Follows with cardiology in [place] * Resume home medications 8. Hyperlipidemia * Resume home medications Diet: 2g Na DNR Prophylaxis: warfarin Dispo: likely >2 midnights, will d/c to home once stabilized, patient is more oriented today Clinical Quality Measures DVT/VTE Risk/Contraindication: Risk Factor Score Per Nursin RFS Level Per Nursing on Admit: 4+=Very High Stroke: Date of last known well: May 23, 2020 Time of last known well: 14:00 ROS MOSCOSO MD 05/25/20 1642: Supervisory-Addendum Brief Verification & Attestation Participated in pt care: history, MDM, physical Personally performed: exam, history, MDM Care discussed with: Medical Student Procedures: n/a I personally saw and examined patient today and agree with documentation. Will d/c cates for voiding trial and start flomax, CT abdomen pending, if unremarkable and able to void, anticipate d/c. JOCELIN CASAREZ, May 25, 2020 08:29 ROS MOSCOSO MD May 25, 2020 16:42
[2020-05-25] MEDS ORDERED: TAMSULOSIN 0.4 MG (FLOMAX) CAP PO SCH (10:45)
--- NOTE | 2020-05-25 11:00 | Diagnostic Imaging Report ---
PROCEDURE: CT abdomen and pelvis without contrast. TECHNIQUE: Multiple contiguous axial images were obtained through the abdomen and pelvis without the use of intravenous contrast. Auto Exposure Controls were utilized during the CT exam to meet ALARA standards for radiation dose reduction. INDICATION: Elevated bilirubin There are no prior CT examinations available for comparison. The hepatic ultrasound exam of 05/24/2020 noted diffuse hyperechogenicity of the liver suggesting fatty metamorphosis and/or chronic hepatocellular disease. The gallbladder was also surgically absent. On this exam the liver is homogeneous but not enlarged measuring 18.5 cm in length. The liver appears to be of normal texture. There is no clear evidence for fatty metamorphosis. There is no focal mass involving the liver either and the biliary tree is not dilated. As noted on the ultrasound exam the gallbladder is surgically absent. The spleen, pancreas, adrenals, kidneys, aorta and inferior vena cava show no sign of an acute abnormality. There is perinephric stranding about both kidneys. This may be a sequela of prior episodes of infection/inflammation.. The stomach is partially filled with particulate matter and difficult to assess. There is diverticulosis of the sigmoid and descending colon but there is no sign of acute diverticulitis. There is a Salvador catheter within the ureter and the bladder is decompressed. There are a few droplets of gas within the bladder as well. These are probably related to the insertion of the Salvador catheter. The uterus is surgically absent. The appendix was visualized and is not abnormally thickened. The bone windows show no sign of a fracture or destructive lesion. There is degenerative disc and bone disease throughout the lumbar spine. There is thickening of pleura along the posterior aspect of each lung. There is no sign of pneumonia or pleural effusion however. There is cardiomegaly, coronary artery disease and a defibrillator device in place. IMPRESSION: 1. There is no acute abnormality abdomen or pelvis. 2. The liver has normal texture and there is no evidence for fatty metamorphosis. There is no focal mass involving the liver either. 3. There is diverticulosis of the sigmoid and descending colon without evidence for acute diverticulitis. Dictated by: Dictated on workstation # [id number]
[2020-05-25] MEDS: CARVEDILOL 6.25 MG (COREG) TAB PO SCH (11:40)
[2020-05-25] MEDS: LOSARTAN 25 MG (COZAAR) TAB PO SCH (11:40)
[2020-05-25] MEDS: ASPIRIN E.C. 81 MG (ECOTRIN) TAB PO SCH (11:40)
[2020-05-25] MEDS: ISOSORBIDE MONONITRATE 30 MG (IMDUR) TAB PO SCH (11:40)
[2020-05-25 12:00] VITALS: BP 132/56
--- NOTE | 2020-05-25 13:50 | Physical Therapy Evaluation ---
PT Evaluation-General Medical Diagnosis Admission Date May 23, 2020 at 16:30 Medical Diagnosis: AMS Onset Date: May 23, 2020 Therapy Diagnosis Therapy Diagnosis: impaired mobility Precautions Precautions/Isolations: Standard Precautions Referral Physician: Abhinav Reason for Referral: Evaluation/Treatment Medical History Pertinent Medical History: Atrial Fib, Heart Failure, HTN Current History EMS secondary to AMS, HTN and incontinence Reviewed History: Yes Social History Home: Single Level Current Living Status: Spouse Entry Into Home: Stairs With Railing PT Steps Into Home: 1 Prior Prior Level of Function SCALE: Activities may be completed with or without assistive devices. 3-Bldcyvzxjp-lbbulbo completes the activity by him/herself with no assistance from a helper. 5-Set-up or Clean-up Assistance-helper sets up or cleans up; patient completes activity. [place] assists only prior to or following the activity. 4-Supervision or Touching Assistance-helper provides verbal cues and/or touching/steadying and/or contact guard assistance as patient completes activity. Assistance may be provided throughout the activity or intermittently. 3-Partial/Moderate Assistance-helper does LESS THAN HALF the effort. [place] lifts, holds or supports trunk or limbs, but provides less than half the effort. 2-Substantial/Maximal Assistance-helper does MORE THAN HALF the effort. [place] lifts or holds trunk or limbs and provides more than half the effort. 2-Dqcyqogge-nsxkdt does ALL the effort. Patient does none of the effort to complete the activity. Or, the assistance of 2 or more helpers is required for the patient to complete the activity. If activity was not attempted, code reason: 7-Patient Refused. 9-Not Applicable-not attempted and the patient did not perform the activity before the current illness, exacerbation or injury. 10-Not Attempted due to Environmental Limitations-(lack of equipment, weather restraints, etc.). 88-Not Attempted due to Medical Conditions or Safety Concerns. Bed Mobility: 6 Transfers (B,C,W/C): 6 Gait: 6 Stairs: 6 Prior Devices Use: None PT Evaluation-Current Subjective Patient is very agreeable to participate with therapy. Pain Numeric Pain Scale: 5-Moderate Pain Location: Right Location Body Site: Side Pain Description: Pressure Objective Patient Orientation: Normal For Age Attachments: Oxygen, IV ROM/Strength ROM Lower Extremities bilateral LE WFL Strength Lower Extremities 4+/5 grossly bilateral LE Integumentary/Posture Integumentary refer to nursing notes Bowel Incontinence: No Bladder Incontinence: No Posture WFL Neuromuscular (Tone, Coordination, Reflexes) grossly intact Sensory Vision: Functional Hearing: Functional Sensation Right Lower Extremit: Intact Sensation Left Lower Extremity: Intact Transfers Roll Left to Right (QC): 6 Lying to Sitting/Side of Bed(Q: 6 Sit to Stand (QC): 6 Chair/Ygh-yi-Xyffa Xfer(QC): 6 Gait Does the Patient Walk?: Yes Mode of Locomotion: Walk Anticipated Mode of Locomotion: Walk Walk 10 feet (QC): 6 Walk 50 ft with 2 Turns(QC): 6 Walk 150 ft (QC): 6 Distance: 400' Gait Assistive Device: FWW Comments/Gait Description Patient reports he has a FWW at his home but does not use it. Safe and functional gait sequence with no deviation Balance Sitting Static: Normal Sitting Dynamic: Normal Standing Static: Normal Standing Dynamic: Normal Assessment/Needs 84 y.o. male, will be seen short term by PT to ensure safea and functional mobility to return to home with spouse/family. Rehab Potential: Fair PT Short Term Goals Short Term Goals Time Frame: May 26, 2020 Roll Left & Right: 6 Sit to lyin Lying to sitting on side of be: 6 Sit to stand: 6 Chair/eym-wt-ovixx transfer: 6 Toilet transfer: 6 Walk 10 feet: 6 Walk 50 feet with two turns: 6 Walk 150 feet: 6 PT Plan Treatment/Plan Treatment Plan: Continue Plan of Care Treatment Plan: Education, Functional Activity Idalmis, Functional Strength, Gait, Safety, Therapeutic Exercise Treatment Duration: May 26, 2020 Frequency: 2 times per week Estimated Hrs Per Day: .25 hour per day Patient and/or Family Agrees t: Yes Discharge Recommendations Therapy Discharge Recommendati: Home & Family Time/GCodes Time In: 1300 Time Out: 1333 Total Billed Treatment Time: 33 Total Billed Treatment 1 visit EVModC 17 min GT 16 min [place] [facility] PT May 25, 2020 13:50
[2020-05-25] MEDS ORDERED: TMSL.4C PO (14:51)
--- NOTE | 2020-05-25 14:52 | Discharge Summary ---
Discharge [facility] Discharge Medications New, Converted or Re-Newed RX: Transmitted to Pharmacy New Medications: Tamsulosin HCl (Flomax) 0.4 Mg Cap 0.4 MG PO DAILY@1800, #90 CAP 0 Refills Continued Medications: Acetaminophen (Tylenol Extra Strength) 500 Mg Tablet 1000 MG PO Q6H PRN for PAIN-MILD (1-4) OR TEMPATURE, TAB Aspirin (Aspirin EC) 81 Mg Tablet.dr 81 MG PO DAILY, TAB Atorvastatin Calcium (Atorvastatin Calcium) 40 Mg Tablet 40 MG PO DAILY, TAB Carvedilol (Coreg) 6.25 Mg Tablet 6.25 MG PO BID, TAB Cholecalciferol (Vitamin D3) (Vitamin D3) 25 Mcg Capsule 25 MCG PO DAILY, CAP Isosorbide Mononitrate (Isosorbide Mononitrate ER) 30 Mg Tab.er.24h 30 MG PO DAILY, TAB Losartan Potassium (Losartan Potassium) 25 Mg Tablet 25 MG PO DAILY, TAB Vitamin B Complex (Vitamin B Complex) 1 Each Tablet 1 EACH PO DAILY, TAB Warfarin Sodium (Warfarin Sodium) 3 Mg Tablet 3 MG PO DAILY, TAB Patient Instructions Goal/Follow Up Appt: Follow up with primary physician within 1 week of discharge. Return to The Hospital For: Confusion, fever, inability to urinate, high blood pressure Activity & Diet Discharge Diet: Cardiac Diet Activity as Tolerated: Yes ROS MOSCOSO MD May 25, 2020 14:52
[2020-05-25 16:42] VITALS: BP 101/61
[2020-05-25 17:09] VITALS: BP 101/61
--- NOTE | 2020-05-25 17:11 | NUR ---
pt was walked for 6 minutes while on room air. pt did not desaturate. pt does not qualify for 02 Addendum: 05/25/20 at 1712 by PAGE FRENCH RT Amended: Links added.
[2020-05-25] MEDS: warFARin 3 MG (COUMADIN) TAB PO SCH (18:02)
== END 2020-05-25 14:49 | disposition home or self-care (01) ==
LOC: ER 14:17 → 4TH 16:30 → UNDOADMOB 16:30 → 4TH 17:20 → UNDODISOB 05-25 19:08
PROVIDERS: ADMIT Family Medicine; ATTEND Family Medicine
DX: R41.82 Altered mental status, unspecified (principal); I11.0 Hypertensive heart disease with heart failure; I50.9 Heart failure, unspecified; I25.10 Atherosclerotic heart disease of native coronary artery without angina pectoris; I48.91 Unspecified atrial fibrillation; I25.2 Old myocardial infarction; I63.9 Cerebral infarction, unspecified; E78.5 Hyperlipidemia, unspecified; R33.9 Retention of urine, unspecified; G89.29 Other chronic pain; M54.6 Pain in thoracic spine; Z79.82 Long term (current) use of aspirin; Z79.899 Other long term (current) drug therapy; Z88.1 Allergy status to other antibiotic agents; Z88.8 Allergy status to other drugs, medicaments and biological substances; Z88.5 Allergy status to narcotic agent; Z20.828 Contact with and (suspected) exposure to other viral communicable diseases; Z90.49 Acquired absence of other specified parts of digestive tract; Z80.3 Family history of malignant neoplasm of breast
CPT/HCPCS: 51702; 70450; 70496; 70498; 71045; 74176; 76705; 80048; 80053 ×2; 80061; 80076; 81000; 82962; 83615; 84484; 85025 ×2; 85027; 85379; 85610 ×3; 85730; 93005; 93041; 94761; 97116; 97162; 99284; U0002; 36415; 87635; G0378

== ENCOUNTER → 2020-10-13 | Outpatient (CLI) | payer MEDICARE ==
[~2020-10-13] MED LIST: ACET-2267 PO; ASPI-1238 PO; ATOR40TA70 PO; CARV6.25 PO; CHOL100048 PO; ISOS30TA82 PO; LOSA25TA41 PO; TMSL.4C PO; VITA1TAB17 PO; WARF3TAB56 PO
== END ==
LOC: CARD 12:58
PROVIDERS: ATTEND Internal Medicine Cardiovascular Disease
DX: I10 Essential (primary) hypertension (principal); I34.0 Nonrheumatic mitral (valve) insufficiency
CPT/HCPCS: 93306

== ENCOUNTER → 2020-11-02 | Outpatient (CLI) | payer MEDICARE ==
--- NOTE | 2020-11-02 15:12 | Diagnostic Imaging Report ---
INDICATION: Injury, knee pain. EXAMINATION: Left knee at 2:20 p.m. Three views were obtained. COMPARISON: There is no prior study available for comparison. FINDINGS: There is no fracture, dislocation or acute bony abnormality evident. 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 The soft tissues are unremarkable. IMPRESSION: 1. There is no evidence for an acute bony abnormality. 2. If clinical concern regarding an underlying injury persists and further imaging is desired, then MRI would be recommended. Dictated by: Dictated on workstation # [id number]
== END ==
LOC: RAD 14:04
PROVIDERS: ATTEND Internal Medicine
DX: M25.562 Pain in left knee (principal)
CPT/HCPCS: 73562

== ENCOUNTER → 2020-11-06 | Outpatient (CLI) | payer MEDICARE ==
[~2020-11-06] VITALS: Ht 172 cm; Wt 95.0 kg
[~2020-11-06] MED LIST changes: +REGADENOSON 0.4 MG/5 ML SYR (LEXISCAN) IV ONE
[2020-11-06] MEDS: CATHETER FLUSH 10 ML SYR IV PRN ×2 (07:33→09:05)
[2020-11-06 09:04] VITALS: BP 169/97
--- NOTE | 2020-11-06 18:18 | Cardiology Stress Test Report ---
Stress Test Report Date of Procedure/Referring: Date of Procedure: Nov 06, 2020 PCP Jerrell Tesfaye MD Admitting Physician Nilsa Gaviria DO Indications: Hypertension Baseline Heart Rate: 76 Baseline Blood Pressure: Blood Pressure Systolic: 169 Blood Pressure Diastolic: 97 Baseline Vitals Vital Signs Date Time Temp Pulse Resp B/P (MAP) Pulse Ox O2 Delivery O2 Flow Rate FiO2 11/06/20 09:04 76 169/97 (121) 97 Room Air Baseline EKG: Baseline EKG: Ventricular paced rhythm Summary After explaining the procedure to the patient, he signed a consent and then brought to the stress nuclear laboratory. Patient received 0.4 mg Lexiscan for stress test, ECG, heart rate and blood pressure were monitored continuously. Resting and stress dose of radio tracer were injected, imaging was acquired and reviewed in short axis, horizontal long axis and vertical long axis views. TID: 1.09 SSS: 27 SDS: 1 EF: 33 1. Patient tolerated Lexiscan well 2. Underlying ventricular paced rhythm persisted during test 3. Fixed defect involving the whole anterior wall and anterior apical segment with no significant reversibility 4. Prominent left ventricle hypokinesia involving the anterior wall anterior apex and inferoapical segment, EF 33% JERRELL TESFAYE MD Nov 06, 2020 18:18
== END ==
LOC: CARD 07:45
PROVIDERS: ATTEND Internal Medicine Cardiovascular Disease
DX: I10 Essential (primary) hypertension (principal); R07.9 Chest pain, unspecified
CPT/HCPCS: 78452; 93017; A9502